=== PATIENT | female | born 1955 | race Caucasian/White ===

== ENCOUNTER 2016-05-17 07:53 | Day surgery (SDC) | payer OTHER ==
--- NOTE | 2016-05-17 14:57 | Operative Note ---
DATE OF PROCEDURE: 05/17/16 PREOPERATIVE DIAGNOSIS: NUCLEAR SCLEROTIC CATARACT, RIGHT EYE. POSTOPERATIVE DIAGNOSIS: NUCLEAR SCLEROTIC CATARACT, RIGHT EYE. PROCEDURE: PHACOEMULSIFICATION OF CATARACTOUS LENS WITH IMPLANTATION OF INTRA- OCULAR LENS. SURGEON: ANGELO PENA M.D. LENS IMPLANT USED: SORENSEN MODEL PCB00 +21.0 DIOPTERS. COMPLICATIONS: NONE. PROCEDURE: The patient was given reference eduard at the 0 and 180-degree position prior to being blocked in the usual fashion with the retrobulbar block in the right eye. The patient was then prepped and draped in the usual fashion and a lid speculum placed in the right eye. At this point, the corneal marker was used to create markings on the cornea at 168 degrees after which, a scleral tunnel wound was placed at the temporal limbus of 2.4 mm cord length. A paracentesis was placed 2 hours to the left and right of this and the chamber deepened with Viscoelastic. The keratome was used to enter through the scleral tunnel wound after which the continuous circular capsulorrhexis was accomplished without difficulty. Hydrodissection of the lens was performed and the nucleus of the lens was removed in a divide and conquer fashion. The residual cortical material was irrigated and aspirated from the eye and the bag and chamber were then reinflated with Viscoelastic. The intraocular lens was placed into the capsular bag and oriented to a position 10 degrees shorter the intended final access. The residual Viscoelastic was removed from the eye and the eye was then reinflated and the intraocular lens dialed into position at 168 degrees. The wound was noted to be water-tight to direct encounter pressure. The lid speculum was removed and the eye was patched and shielded to be re-examined later in the afternoon. Angelo Pena M.D. Date & Time JOB NUMBER: [id number] MTDD
== END 2016-05-17 10:20 | disposition home or self-care (01) ==
LOC: SUR 07:53
PROVIDERS: ATTEND Ophthalmology
DX: H25.11 Age-related nuclear cataract, right eye (principal)

== ENCOUNTER 2018-12-15 08:08 | Day surgery (SDC) | payer BC ==
[2018-12-15] MEDS ORDERED: LIDOCAINE 2% MDV (20MG/ML) 20ML VIAL IV ONE (08:09)
[2018-12-15] MEDS ORDERED: PROPOFOL 10 MG/ML VIAL IV ONE (08:09)
--- NOTE | 2018-12-16 08:30 | Operative Note ---
OPERATION: COLONOSCOPY to the cecum with cold snare polypectomy x6 and cold biopsy forceps polypectomy x1. INDICATION: Positive Cologuard test. The patient's last examination was in 2005 at which time 3 hyperplastic polyps were removed and diverticulosis was noted. ANESTHESIA: Intravenous sedation was administered by the department of anesthesiology and included Diprivan titrated to effect. PROCEDURE: Following informed consent from this alert individual including a discussion of the risks and benefits of the procedure and an opportunity for the patient to ask questions, the patient was in the left lateral decubitus position. A digital rectal examination was performed. Small hemorrhoidal tags were noted. Following this, the Olympus [id number] video colonoscope was inserted into the rectum without resistance. The rectal mucosa had a normal appearance with normal folds and distensibility. The colonoscope was advanced up through the remainder of the bowel without difficulty to the level of the cecum. Throughout the remainder of the bowel, the mucosa appeared normal, the folds were normal, and the bowel was fairly well distensible. There was some scattered diverticulosis with some scattered diverticula noted in the sigmoid colon. The cecum was defined by noting the appendiceal orifice and ileocecal valve. Retroflexion in the cecum failed to demonstrate changes. Overall, the colon preparation was good. From the base of the cecum, the colonoscope was then slowly withdrawn. There was a total of 7 polyps removed upon withdrawal. One ascending colon polyp measuring 5 mm in size was removed with cold snare. There were 3 descending colon polyps ranging between 5-7 mm in size likewise removed with cold snare polypectomy and collected in a specimen trap. There was another descending colon polyp measuring 3 mm in size removed with biopsy forceps. There were 2 sigmoid polyps measuring approximately 5 mm in size removed with cold snare polypectomy. All polyps were recovered. Also noted was diverticulosis in the sigmoid colon. Retroflexion in the rectum demonstrated small internal hemorrhoids. The endoscope was straightened and removed. The patient tolerated the procedure well and was returned to the recovery area in stable condition. IMPRESSION: 1. A total of 7 polyps removed with 1 in the ascending colon, 4 in the descending colon, and 2 in the sigmoid colon as described above. 2. Diverticulosis in the sigmoid colon. 3. Internal and external hemorrhoids. RECOMMENDATIONS: Further recommendations will be forthcoming pending results of pathology obtained today. The patient was advised she can use hemorrhoidal creams or suppositories if the hemorrhoids bother her. Followup will also be with Yadira Galarza DO. She was advised to follow up with Dr. Jordan for panniculitis as well. As always, thank you for allowing me to participate in the care of your patient. BRIGHT
== END 2018-12-15 10:52 | disposition home or self-care (01) ==
LOC: HOP 08:08
PROVIDERS: ATTEND Internal Medicine Gastroenterology
DX: R19.5 Other fecal abnormalities (principal); D12.2 Benign neoplasm of ascending colon; D12.4 Benign neoplasm of descending colon; K63.5 Polyp of colon; K57.30 Diverticulosis of large intestine without perforation or abscess without bleeding; I10 Essential (primary) hypertension; E03.9 Hypothyroidism, unspecified; M19.90 Unspecified osteoarthritis, unspecified site